=== PATIENT | male | born 1990 | race African-American/Black ===

== ENCOUNTER 2017-02-28 09:09 | Emergency (ER) | payer OTHER, SELFPAY | END 2017-02-28 10:00 | disposition home or self-care (01) | LOC: ERS 09:09 | DX: K02.9 Dental caries, unspecified (principal); K03.81 Cracked tooth | CPT/HCPCS: 99283 ==

== ENCOUNTER 2018-09-28 12:17 | Emergency (ER) | payer OTHER, SELFPAY ==
--- NOTE | 2018-09-28 12:52 | RAD ---
XR Chest 1 View Portable History: Chest pain Comparison: Chest radiograph 2014 Findings: Lungs are clear. No pneumothorax. No effusion. No acute osseous abnormality. Impression: No acute intrathoracic abnormality.
[2018-09-28 13:12] LABS: #Lymphocytes 1.1 thou/uL (1.20-3.40); #Monocytes 0.3 thou/uL (0.11-0.59); #Neutrophils 4.5 thou/uL (1.40-6.50); %Basophils 0.5 % (0.0-1.0); %Eosinophils 0.4 % (0.0-10.0); %Neutrophils 76.1 % (42.0-75.0); Hemoglobin 14.8 g/dL (14.0-18.0); Mean Corpuscular HGB CONC 34.6 g/dL (32.0-36.0); Mean Corpuscular Hemoglobin 32.8 pg (27.0-31.0); Mean Corpuscular Volume 94.7 fL (78.0-98.0); Mean Platelet Volume 8.1 fL (7.4-10.4); Platelet Count 203 thou/uL (130-400); RBC Distribution Width 11.4 % (11.5-14.5); Red Blood Cell (RBC) Count 4.52 mill/uL (4.70-6.10); White Blood Cell (WBC) Count 5.9 thou/uL (4.8-10.8)
[2018-09-28 13:25] LABS: ALT (SGPT) Less than 7 U/L (8-55); AST (SGOT) 13 U/L (5-34); Albumin 4.6 g/dL (3.5-5.0); Alkaline Phosphatase 95 U/L (40-150); Anion Gap 11 mmol/L (10-20); BUN (Urea Nitrogen) 9 mg/dL (8.9-20.6); Bilirubin, Total 0.8 mg/dL (0.2-1.2); CK (CPK) 202 U/L (30-200); Calc. Creatinine Clearance 0 mL/min (70-130); Calcium 9.7 mg/dL (7.8-10.44); Carbon Dioxide 26 mmol/L (22-29); Chloride 104 mmol/L (98-107); Estimated GFR-MDRD Greater than 90; Globulin 2.7 g/dL (2.4-3.5); Glucose 110 mg/dL (70-105); Potassium 3.8 mmol/L (3.5-5.1); Protein, Total 7.3 g/dL (6.0-8.3); Sodium 137 mmol/L (136-145)
[2018-09-28] MEDS ORDERED: Ketorolac Tromethamine 30 MG/ML VIAL ONE (13:32)
[2018-09-28] MEDS ORDERED: Acetaminophen/Codeine 30-300mg Tablet ONE (14:43)
== END 2018-09-28 15:58 | disposition home or self-care (01) ==
LOC: ERS 12:17
DX: R07.89 Other chest pain (principal); F20.9 Schizophrenia, unspecified; F17.210 Nicotine dependence, cigarettes, uncomplicated; F84.0 Autistic disorder; Z79.899 Other long term (current) drug therapy
CPT/HCPCS: 36415; 71045; 80053; 82550; 84484; 85025; 93005; 94760; 96374; J1885

== ENCOUNTER 2021-10-14 11:28 | Observation (INO) | payer SELFPAY ==
[2021-10-14] MEDS ORDERED: Boostrix 0.5 ML (Tdap) VIAL ONE (11:38)
[2021-10-14] MEDS ORDERED: CEFAZOLIN 2 GM VIAL ONE (11:50)
[2021-10-14] MEDS ORDERED: CEFAZOLIN 2 GM in Sodium Chloride 0.9% 100 ML IVPB SCH (12:00)
[2021-10-14] MEDS ORDERED: Morphine 4 MG/ML VIAL ONE (12:40)
[2021-10-14 13:03] LABS: #Lymphocytes 0.5 thou/uL (1.20-3.40); #Monocytes 0.6 thou/uL (0.11-0.59); #Neutrophils 12.9 thou/uL (1.40-6.50); %Eosinophils 0.1 % (0.0-10.0); %Lymphocytes 3.6 % (21.0-51.0); %Neutrophils 92.3 % (42.0-75.0); Hemoglobin 15.6 g/dL (14.0-18.0); Mean Corpuscular HGB CONC 33.8 g/dL (32.0-36.0); Mean Corpuscular Hemoglobin 33.7 pg (27.0-31.0); Mean Corpuscular Volume 99.6 fL (78.0-98.0); Mean Platelet Volume 8.3 fL (7.4-10.4); Platelet Count 192 thou/uL (130-400); RBC Distribution Width 11.5 % (11.5-14.5); Red Blood Cell (RBC) Count 4.63 mill/uL (4.70-6.10)
[2021-10-14 13:15] LABS: INR-International Normal Ratio 1.1; Prothrombin Time 13.9 sec (12.0-14.7)
[2021-10-14 13:16] LABS: PTT 25.9 sec (22.9-36.1)
[2021-10-14 13:23] LABS: ALT (SGPT) 211 U/L (8-55); AST (SGOT) 185 U/L (5-34); Albumin 4.7 g/dL (3.5-5.0); Alkaline Phosphatase 105 U/L (40-110); Anion Gap 19 mmol/L (10-20); BUN (Urea Nitrogen) 18 mg/dL (8.9-20.6); Bilirubin, Total 0.7 mg/dL (0.2-1.2); Calc. Creatinine Clearance 0 mL/min (70-130); Calcium 9.4 mg/dL (7.8-10.44); Carbon Dioxide 21 mmol/L (22-29); Chloride 99 mmol/L (98-107); Estimated GFR 52; Globulin 2.6 g/dL (2.4-3.5); Glucose 90 mg/dL (70-105); Potassium 4.2 mmol/L (3.5-5.1); Protein, Total 7.3 g/dL (6.0-8.3); Sodium 135 mmol/L (136-145)
[2021-10-14] MEDS ORDERED: Acetaminophen 325 MG TAB PO PRN (13:41)
[2021-10-14] MEDS ORDERED: Ondansetron PF 4 MG/2 ML Vial IVP PRN (13:42)
[2021-10-14] MEDS ORDERED: Promethazine HCl 25 MG/ML VIAL IM PRN (13:42)
[2021-10-14] MEDS ORDERED: hydrALAZINE 20 MG/ML VIAL SLOW IVP PRN (13:42)
[2021-10-14 13:44] LABS: CKMB 3.5 ng/mL (0-6.6)
[2021-10-14] MEDS ORDERED: Sodium Chloride 0.9% 1,000 ML IV SCH (13:45)
[2021-10-14] MEDS ORDERED: Iopamidol-370 76% 500 ML 1 ML ONE (14:31)
[2021-10-14] MEDS: traMADol HCl 50 MG TAB PO PRN ×2 (16:09→20:35)
[2021-10-14] MEDS: Sodium Chloride 0.9% 1,000 ML IV SCH ×2 (16:11→20:42)
[2021-10-14 16:24] VITALS: BMI 18.9
[2021-10-14 22:23] LABS: #Lymphocytes 1.4 thou/uL (1.20-3.40); #Neutrophils 11.1 thou/uL (1.40-6.50); %Basophils 0.2 % (0.0-1.0); %Lymphocytes 10.1 % (21.0-51.0); %Monocytes 7.3 % (0.0-10.0); %Neutrophils 82.3 % (42.0-75.0); Hemoglobin 13.1 g/dL (14.0-18.0); Mean Corpuscular HGB CONC 34.6 g/dL (32.0-36.0); Mean Corpuscular Hemoglobin 34.4 pg (27.0-31.0); Mean Corpuscular Volume 99.4 fL (78.0-98.0); Mean Platelet Volume 7.9 fL (7.4-10.4); Platelet Count 165 thou/uL (130-400); RBC Distribution Width 11.3 % (11.5-14.5); Red Blood Cell (RBC) Count 3.81 mill/uL (4.70-6.10); White Blood Cell (WBC) Count 13.5 thou/uL (4.8-10.8)
[2021-10-14 22:48] LABS: ALT (SGPT) 130 U/L (8-55); AST (SGOT) 77 U/L (5-34); Albumin 3.9 g/dL (3.5-5.0); Alkaline Phosphatase 84 U/L (40-110); Anion Gap 15 mmol/L (10-20); BUN (Urea Nitrogen) 13 mg/dL (8.9-20.6); Bilirubin, Total 0.9 mg/dL (0.2-1.2); Calc. Creatinine Clearance 80 mL/min (70-130); Calcium 8.7 mg/dL (7.8-10.44); Chloride 102 mmol/L (98-107); Estimated GFR 101; Globulin 2.3 g/dL (2.4-3.5); Glucose 106 mg/dL (70-105); Magnesium 1.5 mg/dL (1.6-2.6); Phosphorus 3.5 mg/dL (2.3-4.7); Potassium 4.1 mmol/L (3.5-5.1); Protein, Total 6.2 g/dL (6.0-8.3); Sodium 134 mmol/L (136-145)
[2021-10-14 22:50] LABS: Troponin I 0.269 ng/mL (< 0.028)
[2021-10-14 22:52] LABS: Carbon Dioxide 21 mmol/L (22-29)
[2021-10-15] MEDS: Sodium Chloride 0.9% 1,000 ML IV SCH ×2 (03:45→09:25)
[2021-10-15 05:17] LABS: #Lymphocytes 1.8 thou/uL (1.20-3.40); #Monocytes 0.9 thou/uL (0.11-0.59); #Neutrophils 8.8 thou/uL (1.40-6.50); %Basophils 0.2 % (0.0-1.0); %Eosinophils 0.2 % (0.0-10.0); %Lymphocytes 15.8 % (21.0-51.0); %Monocytes 8.1 % (0.0-10.0); %Neutrophils 75.7 % (42.0-75.0); Hemoglobin 12.2 g/dL (14.0-18.0); Mean Corpuscular HGB CONC 33.9 g/dL (32.0-36.0); Mean Corpuscular Hemoglobin 34.1 pg (27.0-31.0); Mean Platelet Volume 8.2 fL (7.4-10.4); Platelet Count 154 thou/uL (130-400); RBC Distribution Width 11.4 % (11.5-14.5); Red Blood Cell (RBC) Count 3.58 mill/uL (4.70-6.10); White Blood Cell (WBC) Count 11.6 thou/uL (4.8-10.8)
[2021-10-15 05:21] LABS: INR-International Normal Ratio 1.3; Prothrombin Time 16.3 sec (12.0-14.7)
[2021-10-15 05:22] LABS: PTT 30.8 sec (22.9-36.1)
[2021-10-15 05:34] LABS: Anion Gap 9 mmol/L (10-20); BUN (Urea Nitrogen) 11 mg/dL (8.9-20.6); Calc. Creatinine Clearance 87 mL/min (70-130); Calcium 8.8 mg/dL (7.8-10.44); Carbon Dioxide 27 mmol/L (22-29); Chloride 103 mmol/L (98-107); Estimated GFR 112; Glucose 95 mg/dL (70-105); Magnesium 1.6 mg/dL (1.6-2.6); Potassium 4.3 mmol/L (3.5-5.1); Sodium 135 mmol/L (136-145)
[2021-10-15 08:25] LABS: Troponin I 0.217 ng/mL (< 0.028)
[2021-10-15] MEDS ORDERED: Famotidine/PF 20 mg/2ml Vial SLOW IVP SCH ×2 (09:00→21:00)
[2021-10-15 09:03] LABS: Phosphorus 2.3 mg/dL (2.3-4.7)
[2021-10-15 12:12] VITALS: TEMP 98.3
[2021-10-15] MEDS: traMADol HCl 50 MG TAB PO PRN (12:28)
[2021-10-15 13:10] VITALS: BP 112/59
== END 2021-10-15 16:20 | disposition home or self-care (01) ==
LOC: EEVIPCON 11:28 → ERS 11:28 → 2SW 13:42
PROVIDERS: ADMIT Surgery; ATTEND Surgery
DX: S31.110A Laceration without foreign body of abdominal wall, right upper quadrant without penetration into peritoneal cavity, initial encounter (principal); G89.11 Acute pain due to trauma; I30.9 Acute pericarditis, unspecified; R18.8 Other ascites; N17.9 Acute kidney failure, unspecified; I08.8 Other rheumatic multiple valve diseases; T79.7XXA Traumatic subcutaneous emphysema, initial encounter; Z91.14 Patient's other noncompliance with medication regimen; Z20.822 Contact with and (suspected) exposure to COVID-19; X99.1XXA Assault by knife, initial encounter
CPT/HCPCS: 36415; 71045; 71260; 74177; 80048; 80053; 82553; 83605; 83735; 84100; 84484; 85025; 85610; 85730; 86850; 86900; 86901; 90715; 93005; 93010; 93306; 94760; 96365; 96366; 96375; G0378; G0390; J0690; J2270; J2405; J2550; J3490; J7050; Q9967; S0028; U0003; U0005